=== PATIENT | female | born 1935 | race Caucasian/White ===

== ENCOUNTER 2017-03-21 07:09 | Observation (INO) | payer MEDICARE, OTHER ==
[2017-03-16 20:22] LABS: BUN (BLOOD UREA NITROGEN) 21 MG/DL (6-23); CALCIUM, SERUM 9.5 MG/DL (8.5-10.4); CHLORIDE, SERUM 105 MMOL/L (96-112); CO2 (CARBON DIOXIDE) 29 MMOL/L (24-34); GFR AFRICAN AMERICAN 95 ML/MIN (>=60); GFR NON AFRICAN AMERICAN 82 ML/MIN (>=60); GLUCOSE, SERUM 84 MG/DL (60-99); SODIUM, SERUM 141 MMOL/L (135-148)
[2017-03-16 20:24] LABS: HEMATOCRIT 36.1 % (36.0-48.0); HEMOGLOBIN 11.9 g/dL (12.0-16.0)
--- NOTE | ~2017-03-21 | OP ---
Record Of Operation [facility] [address] [place]. [address] NAME: VINAYAK CORRAL : 39 STATUS : REG [facility] PAT#: [id number] AGE: 82 ADM/REG DATE : 03/21/17 MR#: [id number] REPORT SERV DATE: 03/21/17 DICTATED BY: JAMES MONROY DATE: 03/21/17 REPORT STATUS : Draft TRANSCRIBED BY: TORRES DATE: 03/21/17 DATE OF PROCEDURE: 03/21/2017 PREOPERATIVE DIAGNOSIS: Lumbar radiculopathy with right L3 through S1 disk disease and stenosis. POSTOPERATIVE DIAGNOSIS: Lumbar radiculopathy with right L3 through S1 disk disease and stenosis. PROCEDURE: Right-sided L3-4 and L4-5 microdiscectomy, use of operative microscope, minimal access spine technology, intraoperative O-arm CT scan with computer navigation. ANESTHESIA: General. ESTIMATED BLOOD LOSS: 40 mL. COMPLICATIONS: None. INDICATIONS: The patient is a pleasant 82-year-old with intractable right leg pain, failed multiple attempts at conservative treatment including therapy and epidural injections and medications. After discussion of risks and benefits, she elected to proceed with surgery. PROCEDURE IN DETAIL: I identified the patient in the holding area. Consent was obtained. Went to the operating room. Underwent general anesthesia with endotracheal intubation. Prepped and draped in the usual sterile fashion. Operative safety pause was performed, then we proceeded with surgery. O-arm registration frame was placed in the iliac crest. O-arm was brought in for intraoperative CT scan. Computer registration materials were verified. Under computer guidance, a right longitudinal incision was made. Tube dilators were used to minimally invasively dissect down to the right L3-L4 interspace. Operative microscope was brought in. A johnie was used to perform a laminotomy. Yannick performed a foraminotomy. Disk was incised and free disk material removed with pituitary. The L3 and L4 nerve roots were free of compression. There was a significant amount of bleeding from both the muscle tissue bone and epidural vein. This process was repeated again at the L4-L5 level, so the L3 to L5 nerves were free of compression due to the amount of bleeding and difficulty with visualization. As a result, I did abort the last level at L5-S1 which was the least severe of the three. Irrigation was performed. Hemostasis was achieved. 40 mg Depo-Medrol injected over the nerve roots. Layered closure performed. Sterile dressings were applied. The patient was awoken and extubated and taken to the recovery room in stable condition. OPERATIVE FINDINGS: L3-5 disk disease and stenosis. TOOTIE/TORRES James Up Record Of Operation [address] [address] NAME: VINAYAK CORRAL : 39 STATUS : REG [facility] PAT#: [id number] AGE: 82 ADM/REG DATE : 03/21/17 MR#: [id number] REPORT SERV DATE: 03/21/17 DICTATED BY: JAMES MONROY DATE: 03/21/17 REPORT STATUS : Draft TRANSCRIBED BY: MODL DATE: 03/21/17 DO Clemente / [id number] CC: DO LAUREN Ann
--- NOTE | ~2017-03-21 | HP ---
History And Physical [place] [id number] [facility] [place]. [address] NAME: VINAYAK CORRAL : 39 STATUS : DIS [facility] PAT#: [id number] AGE: 82 ADM/REG DATE : 03/21/17 MR#: [id number] REPORT SERV DATE: 03/30/17 DICTATED BY: JAMES MONROY DATE: 03/30/17 REPORT STATUS : Draft TRANSCRIBED BY: TORRES DATE: 03/30/17 DATE OF ADMISSION: 03/21/2017 CHIEF COMPLAINT: Right leg pain. HISTORY OF PRESENT ILLNESS: The patient is a pleasant 82-year-old female with intractable right lower leg pain. She has failed multiple attempts at conservative treatment including physical therapy, epidural injections, and medications. Her right leg would give out. She had a significant gait disturbance, and after discussion of the risks and benefits, elected to proceed with surgical intervention. REVIEW OF SYSTEMS: She denies chest pain, shortness of breath, and bowel or bladder changes. FAMILY HISTORY: Noncontributory. ALLERGIES: INCLUDE GABAPENTIN AND RANITIDINE. HOME MEDICATIONS: Include albuterol, Fosamax, coenzyme Q10, vitamin B12, glucosamine, [place], labetalol, Cozaar, Ocuvite, tramadol, potassium, and magnesium. PAST MEDICAL HISTORY: Includes seizure disorder, history of stroke, hypertension, dysrhythmia, osteoarthritis, asthma, gastric reflux, depression, and anemia. PHYSICAL EXAMINATION: VITAL SIGNS: Height is 5 feet 1 inch, weight is 144, and BMI of 27.4. GENERAL: The patient is healthy appearing. In no acute distress. PSYCH: Alert and oriented x3. Normal mood and affect. Gait is antalgic and somewhat unsteady. VASCULAR: No extremity swelling. SPINE: Decreased lumbar motion. HEART: Regular rate and rhythm. LUNGS: Clear to auscultation. ABDOMEN: Soft, nontender, and nondistended. Good bowel sounds. BREASTS AND RECTAL: Both deferred. NEUROLOGIC: Strength was diffusely diminished in the right lower extremity. Sensation is grossly decreased as well to light touch in the right lower extremity. IMAGING: I did review the preoperative imaging studies that showed significant disk disease and stenosis with nerve compression, right-sided, L3 through S1. ASSESSMENT: Right L3 through S1 disk disease and stenosis, right lumbar radiculopathy, failed conservative treatment. PLAN: The patient presents today for surgical intervention. Consent was obtained. All questions were answered. The patient is ready to proceed with surgical intervention as History And Physical [address] [address] NAME: VINAYAK CORRAL : 39 STATUS : DIS [place] PAT#: [id number] AGE: 82 ADM/REG DATE : 03/21/17 MR#: [id number] REPORT SERV DATE: 03/30/17 DICTATED BY: JAMES MONROY DATE: 03/30/17 REPORT STATUS : Draft TRANSCRIBED BY: TORRES DATE: 03/30/17 planned. TOOTIE/TORRES James Monroy DO / [id number] CC: DO LAUREN Ann
[~2017-03-21 07:09] MED LIST: COQ-10200 MG PO; COZAAR100 MG PO; FOSAMAX70 MG PO; GARLIC PO; GLUCOSAMINEPO PO; LEG CRAMPS PO; LIPOTRIAD1 CAP PO; MAGNESIUM PO; METHOC500B PO; MULTIPLE VIT PO; NORCO1 TA2 PO; NORV10 PO; NORV5 PO; OCUVITE PO; POTASSIUM GLUCONATE PO; PRILO PO; PROAIR HFA INH; TRAN200 PO; ULTRAM50 PO; VITAMIN B-121000 MC1 SL; VITAMIN D31000 UNIT PO
[2017-03-22] MEDS ORDERED: NORCO1 TA2 PO (12:10)
[2017-03-22] MEDS ORDERED: FLEX PO (12:10)
== END 2017-03-24 11:01 | disposition home or self-care (01) ==
LOC: SDC 07:09 → 3SO 17:34
PROVIDERS: Orthopaedic Surgery
PROC: 01NB0ZZ Release Lumbar Nerve, Open Approach (ICD-10-PCS; principal; 2017-03-21 09:30)
DX: M48.07 Spinal stenosis, lumbosacral region (principal); M51.17 Intervertebral disc disorders with radiculopathy, lumbosacral region; G40.909 Epilepsy, unspecified, not intractable, without status epilepticus; I10 Essential (primary) hypertension; J45.909 Unspecified asthma, uncomplicated; M19.90 Unspecified osteoarthritis, unspecified site; K21.9 Gastro-esophageal reflux disease without esophagitis; F32.9 Major depressive disorder, single episode, unspecified; M43.16 Spondylolisthesis, lumbar region; Z86.73 Personal history of transient ischemic attack (TIA), and cerebral infarction without residual deficits; Z90.710 Acquired absence of both cervix and uterus; Z88.5 Allergy status to narcotic agent; Z88.1 Allergy status to other antibiotic agents; Z88.8 Allergy status to other drugs, medicaments and biological substances; Z96.1 Presence of intraocular lens; Z98.41 Cataract extraction status, right eye; Z98.42 Cataract extraction status, left eye; Z90.89 Acquired absence of other organs; Z90.49 Acquired absence of other specified parts of digestive tract; Z98.51 Tubal ligation status; Z79.899 Other long term (current) drug therapy; Z98.890 Other specified postprocedural states
CPT/HCPCS: 80048; 82962; 85014; 85018; 88304; 88311; 93005; 97116-GP; 97161-GP; A9270-GY; G0378; G8978-CK-GP; G8979-CI-GP; J0360; J0690; J1030; J2250; J2270; J2405; J2710; J3010